=== PATIENT | female | born 1990 | race Caucasian/White ===

== ENCOUNTER 2018-06-26 12:38 | Emergency (ER) | payer SELFPAY ==
[~2018-06-26] VITALS: Ht 172.7 cm; Wt 115.2 kg
[2018-06-26 13:01] VITALS: BP 131/69
[2018-06-26] MEDS ORDERED: AMOX875T PO (13:14)
[2018-06-26] MEDS ORDERED: DEXAMETHASONE 4 MG TABLET PO ONE (13:15)
--- NOTE | 2018-06-26 13:15 | PHYS DOC ---
Past Medical History Past Medical History: Asthma, GERD Past Surgical History: Other Additional Past Surgical Histo: BILAT M&T,LEFT OVARY R/T ECTOPIC Alcohol Use: Occasionally Drug Use: None Adult General Chief Complaint Chief Complaint: DENTAL PROBLEM HPI HPI Patient is a 27 year old female who presents with left side face pain, eye lateral ear pain, bilateral ear drainage, headache, no fever, no nausea, vomiting, diarrhea 3 days. Patient states her allergies of been acting up but apparently for the past month she's been taking medication. Patient states she has a history of seasonal allergies, asthma, GERD. Patient states she recently just moved back to [place] and has no primary care provider. Patient rates her pain a 3 out of 10 that radiates to the left side of her face and left neck and head, states she's also been taking ibuprofen for any kind of pain. Review of Systems Review of Systems Constitutional: Denies fever or chills [] Eyes: Denies change in visual acuity, redness, or eye pain [] HENT: Nasal congestion. Denies sore throat. Bilateral ear drainage and pain. [] Respiratory: Denies cough or shortness of breath [] Cardiovascular: No additional information not addressed in HPI [] GI: Denies abdominal pain, nausea, vomiting, bloody stools or diarrhea [] : Denies dysuria or hematuria [] Musculoskeletal: Denies back pain or joint pain [] Integument: Denies rash or skin lesions [] Neurologic: Denies headache, focal weakness or sensory changes [] Endocrine: Denies polyuria or polydipsia [] All other systems were reviewed and found to be within normal limits, except as documented in this note. Current Medications Current Medications Current Medications Medications (Trade) Dose Ordered Sig/Pretty Start Time Stop Time Status Last Admin Dose Admin Dexamethasone (Decadron) 8 mg 1X ONCE 06/26/18 13:15 06/26/18 13:16 DC Allergies Allergies Allergies Coded Allergies Type Severity Reaction Last Updated Verified bacitracin Allergy Intermediate Rash 06/26/18 Yes neomycin Allergy Intermediate Rash 06/26/18 Yes paroxetine Allergy Intermediate Swelling 06/26/18 Yes polymyxin B Allergy Intermediate Rash 06/26/18 Yes Physical Exam Physical Exam Constitutional: Well developed, well nourished, no acute distress, non-toxic appearance. [] HENT: Normocephalic, atraumatic, bilateral external ears normal, Left ear tympanic is red. Right ear tympanic is white but with effusion. Oropharynx moist , no oral exudates, nose normal. [] Eyes: PERRLA, EOMI, conjunctiva normal, no discharge. [] Neck: Normal range of motion, no tenderness, supple, no stridor. [] Cardiovascular:Heart rate regular rhythm, no murmur [] Lungs & Thorax: Bilateral breath sounds clear to auscultation [] Abdomen: Bowel sounds normal, soft, no tenderness, no masses, no pulsatile masses. [] Skin: Warm, dry, no erythema, no rash. [] Back: No tenderness, no CVA tenderness. [] Extremities: No tenderness, no cyanosis, no clubbing, ROM intact, no edema. [] Neurologic: Alert and oriented X 3, normal motor function, normal sensory function, no focal deficits noted. [] Psychologic: Affect normal, judgement normal, mood normal. [] Current Patient Data Vital Signs Vital Signs Date Time Temp Pulse Resp B/P (MAP) Pulse Ox O2 Delivery O2 Flow Rate FiO2 06/26/18 13:01 98.3 76 20 131/69 (89) 97 Room Air 98.3 EKG EKG [] Radiology/Procedures Radiology/Procedures [] Course & Med Decision Making Course & Med Decision Making Patient is a 27 year old female who presents with left side face pain, eye lateral ear pain, bilateral ear drainage, headache, no fever, no nausea, vomiting, diarrhea 3 days. Patient states her allergies of been acting up but apparently for the past month she's been taking medication. Patient states she has a history of seasonal allergies, asthma, GERD. Patient states she recently just moved back to [place] and has no primary care provider. Patient rates her pain a 3 out of 10 that radiates to the left side of her face and left neck and head, states she's also been taking ibuprofen for any kind of pain. Lungs are clear bilaterally. Heart rate is normal without murmur. Patient denies cough or sinus tenderness. Throat is pink and without exudates. She denies any throat pain. Patient denies any nausea, vomiting, diarrhea. Patient is afebrile. There are no lymph nodes palpable. Area around the patient's left ear and when I examined the left ear was very tender for the patient. She is neurologically intact. Patient is given dexamethasone dose in the ED today. Patient will be given a prescription for amoxicillin. Patient is to follow-up with a primary care provider within 2-3 days. Patient continue taking her sinus medication and ibuprofen for pain. Patient is stable and in no distress. [] Dragon Disclaimer Dragon Disclaimer This electronic medical record was generated, in whole or in part, using a voice recognition dictation system. Departure Departure Impression: Primary Impression: Otitis media Disposition: HOME, SELF-CARE Condition: STABLE Referrals: NO PCP (PCP) Patient Instructions: Otitis Media, Adult Additional Instructions: Follow up with a PCP. Continue Sinus medication, Ibuprofen, and Take antibiotic as prescribed. Scripts Amoxicillin (AMOXICILLIN) 875 Mg Tablet 1 TAB PO BID, #14 TAB Prov: DEBBY PEREZ APRN 06/26/18 Problem Qualifiers Primary Impression: Otitis media Otitis media type: unspecified Chronicity: acute Qualified Codes: H66.90 - Otitis media, unspecified, unspecified ear DEBBY PEREZ APRN Jun 26, 2018 13:15
== END 2018-06-26 13:48 | disposition home or self-care (01) ==
LOC: ER 12:38
DX: H66.93 Otitis media, unspecified, bilateral (principal); R51 Headache; J45.909 Unspecified asthma, uncomplicated; K21.9 Gastro-esophageal reflux disease without esophagitis; Z88.1 Allergy status to other antibiotic agents; Z88.8 Allergy status to other drugs, medicaments and biological substances
CPT/HCPCS: 99283; J8540

== ENCOUNTER → 2019-02-07 | Outpatient (CLI) | payer BC ==
[~2019-02-07] MED LIST: AMOX875T PO
--- NOTE | 2019-02-07 13:22 | RAD ---
DATE: 02/07/2019 EXAM: MAMMAndrew IRIZARRY, BREAST LEFT HISTORY: Palpable abnormalities involving the left breast at the upper outer aspect in the lower inner aspect. COMPARISON: 10/24/2018 outside mammographic exam This study was interpreted with the benefit of Computerized Aided Detection (CAD). Breast Density: SCATTERED The breast parenchyma shows scattered fibroglandular densities. Breast parenchyma level B. FINDINGS: 2 markers were placed at the left upper outer breast. A marker was placed at the left lower inner breast. No mass, suspicious calcification, or distortion. Ultrasound imaging of the left breast was performed at the sites of reported palpable abnormality. Imaging was performed in particular to 10:00 region 7 cm from the nipple, 11:30 region 8 cm from the nipple and 2:00 region 7 cm from the nipple. No masses, cysts, or other suspicious findings are evident at the size reported by the patient. Upon physical exam by myself, there is no suspicious finding. IMPRESSION: No suspicious imaging finding. No suspicious finding on physical exam by myself. The sites of reported palpable abnormality are normal on imaging and no palpable finding is detected by myself. Clinical management is recommended in determining need for biopsy. BI-RADS CATEGORY: 1 NEGATIVE RECOMMENDED FOLLOW-UP: CLIN FOLLOW UP IMAGING CLINICALLY INDICATED PQRS compliance statement: Patient information was entered into a reminder system with a target due date at the age of 33 unless clinically indicated sooner for the next mammogram. Mammography is a sensitive method for finding small breast cancers, but it does not detect them all and is not a substitute for careful clinical examination. A negative mammogram does not negate a clinically suspicious finding and should not result in delay in biopsying a clinically suspicious abnormality. "Our facility is accredited by the [employer] Mammography Program."
== END | disposition home or self-care (01) ==
LOC: MAMMO 09:32
PROVIDERS: ATTEND Nurse Practitioner Family
DX: N60.12 Diffuse cystic mastopathy of left breast (principal)
CPT/HCPCS: 76641; 77066; G0279; 77062

== ENCOUNTER → 2021-03-27 | Outpatient (CLI) | payer OTHER ==
--- NOTE | 2021-04-01 13:54 | RAD ---
Gastric Emptying Study Indication: Reason: BLOATING HEARTBURN EARLY SATIETY Procedure: Anterior and posterior projection static images are obtained over the stomach following or al administration of 2 mCi of 99 M technetium sulfur colloid in a solid meal. Time points include an immediate baseline, and 1, 2, and 3 hours post ingestion. Findings: There is progressive emptying of the stomach on sequential images. Percentage retention at one hour is 82% (normal 34.8-91%). Two hours 1% (normal 2.7-60%). Three hours 0% (normal 0.5-28%). The calculated T1/2 of gastric emptying is 89 minutes. 45-90 minutes is considered normal. IMPRESSION: There is no delayed gastric emptying. Electronically signed by: Sergio Quach MD (04/01/2021 1:52 PM) [id number]
== END ==
LOC: NM 07:37
PROVIDERS: ATTEND Physician Assistant
DX: R14.0 Abdominal distension (gaseous) (principal); R12 Heartburn; R68.81 Early satiety
CPT/HCPCS: 78264; A9541

== ENCOUNTER → 2021-04-01 | Outpatient (CLI) | payer OTHER ==
--- NOTE | 2021-04-01 17:58 | KCIC ---
INDICATION: Reason: SHARP SHOOTING LBP INTO BOTH LEGS XS 2 WEEKS, NO INJURY / Spl. Instructions: / H istory: COMPARISON: None. IMPRESSION: Lumbar spine: 4 views obtained. No acute fracture or dislocation. Mild degenerative changes are ident ified with early osteophyte formation at the vertebral body endplates as well as facet hypertrophy. Electronically signed by: Bryson Curran MD (04/01/2021 5:56 PM) [id number]
== END ==
LOC: KCIC 15:25
PROVIDERS: ATTEND Nurse Practitioner Family
DX: M47.816 Spondylosis without myelopathy or radiculopathy, lumbar region (principal); M25.78 Osteophyte, vertebrae
CPT/HCPCS: 72110

== ENCOUNTER → 2021-05-15 | Outpatient (CLI) | payer OTHER ==
--- NOTE | 2021-05-16 10:55 | KCIC ---
Exam performed: Thyroid ultrasound. Indication: Hyperthyroidism. Date of Service: 05/15/2021. Comparison: None available. Technique: Real-time grayscale imaging of the thyroid gland is performed and images are obtained. Findings: The right lobe measures 4.4 x 1.8 x 2.0 cm cm. No solid or cystic mass lesions are seen. The thyroid isthmus measures 5.5 mm.. The left lobe measures 4.8 x 3.4 cm cm. There is a 1.2 x 1.0 x 0.86 cm hypoechoic nodule in the infer ior medial left lobe extending into the isthmus with vascularity. Separately there is an additional h ypoechoic 1.8 x 1.7 x 1.2 cm thyroid nodule containing calcifications. Impression: 1. Left thyroid nodules as outlined above. Given suspicious appearance, fine-needle aspiration of the dominant left thyroid nodule may be obtained. Electronically signed by: Zeny Lozada MD (05/16/2021 10:53 AM) [id number]
== END ==
LOC: KCIC US 14:35
PROVIDERS: ATTEND Nurse Practitioner Family
DX: E04.2 Nontoxic multinodular goiter (principal); E05.90 Thyrotoxicosis, unspecified without thyrotoxic crisis or storm
CPT/HCPCS: 76536

== ENCOUNTER → 2021-07-08 | Outpatient (CLI) | payer OTHER ==
--- NOTE | 2021-07-09 09:51 | RAD ---
EXAM: ULTRASOUND-GUIDED THYROID FINE-NEEDLE ASPIRATION OF 2 LEFT THYROID NODULES. HISTORY: Left thyroid nodules. Ultrasound-guided biopsy is requested. FINDINGS: The procedure along with its risks and benefits were explained to the patient. She agreed t o proceed. A timeout procedure was performed. Sonographic images of the thyroid gland were obtained. These redemonstrate solid nodules inferiorly i n the left thyroid lobe, and adjacent to the isthmus. Initially, the larger, more inferior nodule was targeted for biopsy. The overlying skin was sterilely prepped and infiltrated with 1% lidocaine for local anesthesia. Under ultrasound guidance, 4 aspirat es were obtained using 25-gauge needles. These were hand delivered to pathology who determined them a dequate for diagnosis. Second, the smaller nodule adjacent to the isthmus was targeted through the same skin site. 4 25-gaug e aspirates were obtained under ultrasound guidance. An additional 22-gauge aspirate was then obtaine d. Instrumentation was withdrawn, and a sterile dressing was placed. There were no immediate complica tions. IMPRESSION: 1. Successful ultrasound-guided fine-needle aspiration of 2 left thyroid nodules. Electronically signed by: Chris Warner MD (07/09/2021 9:49 AM) [id number]
== END | disposition home or self-care (01) ==
LOC: US 10:12
PROVIDERS: ATTEND Surgery
DX: E04.2 Nontoxic multinodular goiter (principal); Z72.89 Other problems related to lifestyle; Z79.899 Other long term (current) drug therapy; Z88.8 Allergy status to other drugs, medicaments and biological substances
CPT/HCPCS: 10005; 10006; C1819; 88173; 88305

== ENCOUNTER → 2021-08-06 | Outpatient (CLI) | payer OTHER ==
[~2021-08-06] MED LIST changes: +FAMO20TA5 PO; +GABA-585 PO; +HYDR12.59 PO; +LEVO-101 PO; +MELO7.5T29 PO; +OMEP40CA7 PO; +OXYC-325 PO
== END ==
LOC: LAB 12:55
PROVIDERS: ATTEND Surgery
DX: Z01.812 Encounter for preprocedural laboratory examination (principal); C73 Malignant neoplasm of thyroid gland; Z20.822 Contact with and (suspected) exposure to COVID-19
CPT/HCPCS: U0003; U0005

== ENCOUNTER 2021-08-08 05:57 | Observation (INO) | payer OTHER ==
[2021-08-08] VITALS (8 sets, daily range): BP systolic 110–139; BP diastolic 63–79
[~2021-08-08] VITALS: Ht 172.7 cm; Wt 130.0 kg
[~2021-08-08 05:57] MED LIST changes: -FAMO20TA5 PO; -GABA-585 PO; -HYDR12.59 PO; -LEVO-101 PO; -MELO7.5T29 PO; -OMEP40CA7 PO; -OXYC-325 PO
[2021-08-08] MEDS ORDERED: ceFAZolin SODIUM 3 GM in IV DEXTROSE 5% 100ML 100 ML IV PRN (06:00)
[2021-08-08] MEDS ORDERED: fentaNYL PF VIAL 100 MCG/2 ML VIAL IVP PRN (06:00)
[2021-08-08] MEDS ORDERED: PROCHLORPERAZINE 10 MG/2 ML VIAL. IVP PRN (06:00)
[2021-08-08] MEDS ORDERED: IV RINGERS,LACTATED 1000ML 1,000 ML IV SCH (06:00)
[2021-08-08] MEDS ORDERED: ACETAMINOPHEN 500 MG TABLET PO PRN (06:00)
[2021-08-08] MEDS ORDERED: HYDR12.59 PO (06:33)
[2021-08-08] MEDS ORDERED: GABA-585 PO (06:33)
[2021-08-08] MEDS ORDERED: OMEP40CA7 PO (06:33)
[2021-08-08] MEDS ORDERED: FAMO20TA5 PO (06:33)
[2021-08-08] MEDS ORDERED: MELO7.5T29 PO (06:33)
[2021-08-08] MEDS ORDERED: LIDOCAINE 2% PF 5 ML VIAL. ONE (06:54)
[2021-08-08] MEDS ORDERED: PROPOFOL 10 MG/ML (20ML) VIAL. IV ONE (06:54)
[2021-08-08] MEDS ORDERED: PHENYLEPHRINE 10 MG/ML VIAL. ONE (06:54)
[2021-08-08] MEDS ORDERED: DEXAMETHASONE SOD PHOS 20 MG/5 ML VIAL. ONE (06:54)
[2021-08-08] MEDS ORDERED: ONDANSETRON PF 4 MG/2 ML VIAL. ONE (06:54)
[2021-08-08] MEDS ORDERED: SEVOFLURANE > 120 MINUTES. IH ONE (06:54)
[2021-08-08] MEDS ORDERED: ROCURONIUM 50 MG/5 ML VIAL. ONE (06:55)
[2021-08-08] MEDS ORDERED: MIDAZOLAM HCL/PF 2 MG/2 ML VIAL. ONE (06:55)
[2021-08-08] MEDS ORDERED: SUCCINYLCHOLINE 200 MG/10 ML VIAL. ONE (06:55)
[2021-08-08] MEDS ORDERED: fentaNYL PF VIAL 100 MCG/2 ML VIAL ONE ×2 (06:55→09:39)
[2021-08-08] MEDS ORDERED: diphenhydrAMINE 50 MG/ML VIAL ONE (06:56)
[2021-08-08] MEDS ORDERED: BUPIVACAINE-EPI 0.25% 30 ML VIAL KIT. ONE (07:08)
[2021-08-08] MEDS ORDERED: KETAMINE HCL IN NACL, ISO-OSM 50 MG/5 ML SYRINGE ONE (08:14)
[2021-08-08] MEDS ORDERED: HYDROmorphone 2 MG/ML VIAL ONE ×2 (08:15→10:01)
[2021-08-08] MEDS ORDERED: SUGAMMADEX SODIUM 200 MG/2 ML VIAL. IVP ONE (08:15)
--- NOTE | 2021-08-08 09:11 | PDOC4 ---
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 Procedure of total thyroidectomy was explained to the patient detail risk benefits were also discussed including bleeding infection injury to the recurrent laryngeal nerve causing hoarseness and voice. Alternatives this procedure also discussed with the patient who seemed to understand and gave a verbal written consent to have the procedure performed. Patient was taken to the operating room placed in the supine position general anesthesia was initiated once patient was sleeping intubated her neck was prepped and draped usual sterile fashion using ChloraPrep. An area 2 fingerbreadths above the sternal notch was incised with 15 blade scalpel is carried down through the subcutaneous tissue using electrocautery right hemostasis down to the platysmas muscle which was incised a flap was propagated superiorly with blunt and sharp dissection and inferiorly similarly with blunt and sharp dissection a Mahorner retractor was then placed. The strap muscles in the midline were incised with electrocautery. Tensions were first turned to the left thyroid where the superior thyroid vessels were encircled with a right angle and a 2-0 Vicryl tie was used to tie and then transected with the harmonic scalpel adhesions to the thyroid were taken down with blunt sharp dissection use electrocautery the inferior vessels were similarly tied as the superior and transected with the harmonic scalpel the left thyroid was rolled to the midline using the harmonic scalpel to take down adhesions and attachments. Attention was then turned to the right thyroid where in similar fashion adhesions and attachments were taken down with the harmonic scalpel the superior vessels were encircled with a right angle and tied with a 2-0 Vicryl tie. Thyroid was removed from the neck a stitch was placed at the superior pole the left thyroid and sent for pathology along with a lymph node. Wound was irrigated with saline and suctioned dry hemostasis deemed be appropriate and the strap muscles in the midline were closed with a running 3-0 Vicryl the Mahorner retractor was removed and the platysmas was reapproximated with a 3-0 Vicryl running suture. Skin was reapproximated for subcuticular Monocryl Mastisol Steri-Strips island dressing were applied. Patient was awakened extubated operating room taken to recovery in stable condition all sponge instrument needle counts listed as correct estimated blood loss 20 mL MARCOS RUBIO MD Aug 08, 2021 09:11
[2021-08-08] MEDS ORDERED: ONDANSETRON PF 4 MG/2 ML VIAL. IV PRN (09:15)
[2021-08-08] MEDS ORDERED: 0.9 % SODIUM CHLORIDE 10 ML DISP.SYRIN. IV PRN (09:15)
[2021-08-08] MEDS ORDERED: oxyCODONE/APAP 5/325 1 TAB TABLET PO PRN ×2 (09:15)
[2021-08-08] MEDS ORDERED: MORPHINE SULFATE 2 MG/ML INJ. ONE (09:39)
[2021-08-08] MEDS: MORPHINE SULFATE 2 MG/ML INJ. IVP PRN ×2 (09:41→09:51)
[2021-08-08] MEDS: fentaNYL PF VIAL 100 MCG/2 ML VIAL IVP PRN ×2 (09:42→09:51)
[2021-08-08] MEDS: HYDROmorphone 2 MG/ML VIAL IVP PRN ×4 (10:04→11:31)
[2021-08-08] MEDS ORDERED: PROCHLORPERAZINE 10 MG/2 ML VIAL. ONE (10:07)
[2021-08-08] MEDS: IV DEXTROSE 5%-LACT RINGERS 1,000 ML IV SCH ×2 (13:03→23:17)
[2021-08-08] MEDS: KETOROLAC 30 MG/ML VIAL. IV SCH ×3 (13:03→23:17)
[2021-08-08] MEDS: MORPHINE SULFATE 2 MG/ML INJ. IV PRN ×2 (15:54→21:38)
[2021-08-08] MEDS ORDERED: FLU VACC QUAD 21-22 (6MOS+) PF 0.5 ML SYRINGE. VAX IM ONE (21:00)
[2021-08-09 03:15] VITALS: BP 99/59
[2021-08-09] MEDS: KETOROLAC 30 MG/ML VIAL. IV SCH (05:32)
[2021-08-09] MEDS ORDERED: LEVOTHYROXINE 100 MCG TABLET PO SCH (06:00)
[2021-08-09 07:00] VITALS: BP 130/72
[2021-08-09] MEDS ORDERED: LEVO-101 PO (08:47)
[2021-08-09] MEDS ORDERED: OXYC-325 PO (08:47)
--- NOTE | 2021-08-09 08:49 | DISCH ---
DISCHARGE INSTRUCTIONS Condition on Discharge Condition on Discharge: Stable Activity After Discharge Activity Instructions for Disc: Avoid exertion Diet after Discharge Diet after Discharge: Regular Wound Incision Care Other wound/incision instructi: Tahira shower today Contacting the after DC Call your doctor for: If your condition worsens Follow-Up Follow up with: Dr. Rubio in 2 weeks MARCOS RUBIO MD Aug 09, 2021 08:49
--- NOTE | 2021-08-09 08:50 | PDOC3 ---
Discharge Summary Visit Information Date of Admission: Aug 08, 2021 Date of Discharge: Aug 09, 2021 Admitting Diagnosis: Papillary thyroid cancer Final Diagnosis Papillary thyroid cancer Brief Hospital Course Allergies Allergies Coded Allergies Type Severity Reaction Last Updated Verified bacitracin Allergy Intermediate Rash 06/26/18 Yes neomycin Allergy Intermediate Rash 06/26/18 Yes paroxetine Allergy Intermediate Swelling 06/26/18 Yes polymyxin B Allergy Intermediate Rash 06/26/18 Yes Vital Signs Vital Signs Date Time Temp Pulse Resp B/P (MAP) Pulse Ox O2 Delivery O2 Flow Rate FiO2 08/09/21 07:41 Nasal Cannula 2.0 08/09/21 03:15 97.9 100 18 99/59 (72) 97 97.9 Lab Results Laboratory Tests Test 08/08/21 06:14 Bedside Urine HCG, Qualitative Hcg negative (Negative) Brief Hospital Course Ms. Gutierrez is a 30 old [female who presented with a papillary thyroid cancer on FNA underwent total thyroidectomy she was mated for postoperative observation overnight did quite well tolerating diet and being discharged home in stable condition Assessment Assessment Papillary thyroid cancer Discharge Information Condition at Discharge: Stable Follow Up: Weeks Disposition/Orders: D/C to Home Scheduled Famotidine (Famotidine) 20 Mg Tablet, 20 MG PO HS for , (Reported) Entered as Reported by: Brad Martinez on 08/08/21632 Last Action: New Order on 08/08/21632 by Brad Martinez Gabapentin (Gabapentin ) 100 Mg Capsule, 200 MG PO HS for NEUROGENIC PAIN, (Reported) Entered as Reported by: Brad Martinez on 08/08/21632 Last Action: New Order on 08/08/21632 by Brad Martinez Hydrochlorothiazide (Hydrochlorothiazide) 12.5 Mg Capsule, 12.5 MG PO DAILY for , (Reported) Entered as Reported by: Brad Martinez on 08/08/21632 Last Action: New Order on 08/08/21632 by Brad Martinez Meloxicam (Meloxicam) 7.5 Mg Tablet, 1 TAB PO DAILY for for 30 Days, #30 Ref 0 (Reported) Entered as Reported by: Brad Martinez on 08/08/21632 Last Action: New Order on 08/08/21632 by Brad Martinez Omeprazole (Omeprazole) 40 Mg Capsule.dr, 1 CAP PO DAILY for , #30 Ref 3 (Reported) Entered as Reported by: Brad Martinez on 08/08/21632 Last Action: New Order on 08/08/21632 by Brad Martinez Scheduled PRN Oxycodone HCl/Acetaminophen (Percocet 5-325 mg Tablet) 1 Each Tablet, 1 TAB PO Q6HRS PRN for PAIN MDD 4 Tablet(s) for 5 Days, #20 Ref 0 Prescribed by: Jourdan Dunham on 08/09/21 0848 Patient Instructions Patient Instructions No strenuous activity follow-up with Dr. Dunham in 2 weeks Justicifation of Admission Dx: Justifications for Admission: Justification of Admission Dx: N/A JOURDAN DUNHAM MD Aug 09, 2021 08:50
--- NOTE | 2021-08-09 10:25 | NUR ---
Discharge Note: LIT [facility] Discharge instructions and discharge home medications reviewed with Patient and spouse and a copy given. All questions have been answered and understanding verbalized. The following instructions and handouts were given:information about incision care, medications, diet, follow up, activity. Discontinued lines and drains: IV line in left hand removed, catheter tip intact. Patient discharged to home with self care with , patient ambulated to discharge vehicle.
--- NOTE | 2021-08-14 16:15 | PATHOLOGY ---
[facility] Accession Number: [id number] . 01 Material submitted: . PART A: parathyroid gland - PARATHYROID PART B: thyroid gland - THYROID LEFT SUPERIOR- STITCH . 01 Clinical history: . CANCER OF THYROID TOTAL THYROIDECTOMY . 02 Diagnosis: A. Lymph node, perithyroidal: - Metastatic carcinoma. . B. Thyroid gland and focal attached perithyroidal fibroadipose and skeletal mucosal tissue, total thyroidectomy: - Papillary carcinoma, classic type, two foci, the largest involving the middle left thyroid lobe measuring 1.8 cm in greatest dimension, and the smaller involving the left inferior thyroid lobe and adjacent isthmus measuring 1.6 cm in greatest dimension. - Tumor appears confined to the thyroid and focally abuts the anterolateral left thyroid lobe margin. - Minute focus of metastatic carcinoma involving perithyroidal lymph node of isthmic region. - No parathyroid glands identified. (JPM:mikhail; 08/13/2021) . . Surgical Pathology Cancer Case Summary Protocol posting date: April 2019 . THYROID GLAND: . Procedure ___ Total thyroidectomy . Tumor Focality ___ Multifocal . Tumor Site ___ Left lobe ___ Isthmus . Tumor Size Greatest dimension: 1.8 cm . Histologic Type ___ Papillary carcinoma, classic (usual, conventional) . Margins ___ Uninvolved by carcinoma + Distance of invasive carcinoma from closest margin: Less than 1 mm . Angioinvasion (Vascular Invasion) ___ Not identified . Lymphatic Invasion ___ Not identified . + Perineural Invasion +___ Not identified . Extrathyroidal Extension ___ Not identified . Regional Lymph Nodes Number of Lymph Nodes Involved: 2 Chris Levels Involved ___ Level - perithyroidal (isthmic) ___ Other: perithyroidal, exact site not specified . Size of Largest Metastatic Deposit: ___ Specify: 1-2 mm . Extranodal Extension ___ Not identified . Number of Lymph Nodes Examined: 2 . Pathologic Stage Classification (pTNM, AJCC 8th Edition) Primary Tumor (pT) ___ pT1b: Tumor >1 cm but less than or equal to 2 cm in greatest dimension, limited to the thyroid . Regional Lymph Nodes (pN) ___ pN1: Metastasis to regional nodes . + Additional Pathologic Findings + ___ None identified . + Clinical History + ___ No known radiation exposure . (JPM:shrub planter; 08/13/2021) QMS 08/13/2021 1438 Local . 02 Comment: Sections of the total thyroidectomy reveal two foci of papillary carcinoma involving the left thyroid lobe. The larger involves the middle left thyroid lobe and measures 1.8 cm in greatest dimension. The smaller involves the inferior left thyroid lobe and adjacent isthmus and measures 1.6 cm in greatest dimension. The tumor appears confined to the thyroid and focally abuts the cauterized anterolateral margin of the left thyroid lobe. The posterior margins are negative for tumor. A properly controlled immunoperoxidase stain for AE1/AE3 is obtained on a small perithyroidal lymph node of the isthmic region and reveals a minute subcapsular focus of metastatic carcinoma measuring less than 1 mm in greatest dimension. . A properly controlled immunoperoxidase stain for AE1/AE3 is obtained on the separately submitted perithyroidal lymph node (specimen A) and reveals a small subcapsular focus of metastatic carcinoma measuring 1-2 mm in greatest dimension. . The case is also examined by Dr. Diaz, who agrees with the diagnosis. . (JPM:mikhail; 08/13/2021) . 02 Electronically signed: . Chase Romero MD, Pathologist NPI- [id number] . 01 Gross description: . A. Received in formalin labeled "Grisel Gutierrez, perithyroid" is a irvin-brown soft tissue nodule measuring 0.8 x 0.6 x 0.3 cm and weighing 0.05 g. The specimen is submitted without sectioning in cassette A1. . B. Received in formalin labeled "Grisel Gutierrez, thyroid-left superior (stitch)" is a total thyroidectomy specimen weighing 23 g. The right lobe measures 4.1 x 3.1 x 2.3 cm, the left lobe measures 4.6 x 3.1 x 2.8 cm, and the isthmus measures 1.8 x 1.6 x 1.2 cm. The left superior lobe displays a suture. The external surface is red-brown and smooth and is inked as follows: Right anterior-green, left anterior-blue, isthmus anterior-orange, entire posterior-black. The specimen is sectioned to reveal 2 irvin-white solid masses with ill-defined borders. The first mass is located in the left mid lobe and measures 1.8 x 1.7 x 1.6 cm. The mass grossly abuts the inked anterior and anterior lateral surface. The second mass is located in the left inferior lobe and extends into the isthmus and measures 1.6 x 1.6 x 1.3 cm. The second mass grossly abuts the inked anterior surface. The masses are located 0.4 cm apart. The remaining thyroid parenchyma is red-brown and homogeneous without additional lesions identified. 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 02 Pathologist provided ICD-10: C77.9, C73 . 02 CPT . 850945, 129078, [id number] Specimen Comment: A courtesy copy of this report has been sent to [phone], [phone] Specimen Comment: [id number] Specimen Comment: Report sent to / DR NELSON Performed at: 01 [facility] [address], [place] [id number] MD Lex Mak MD Phone: [phone] Performed at: 02 [facility] [address], [place] [id number] MD Chase Romero MD Phone: [phone]
== END 2021-08-09 10:25 | disposition home or self-care (01) ==
LOC: SURG 05:57 → 4 NORTH 11:58
PROVIDERS: ADMIT Surgery; ATTEND Surgery
DX: C73 Malignant neoplasm of thyroid gland (principal); Z20.822 Contact with and (suspected) exposure to COVID-19; Z23 Encounter for immunization; Z71.85 Encounter for immunization safety counseling
CPT/HCPCS: 60240; 81025; 90471; 90686; 96374; 96375; 96376; A4930; G0378; G0379; J0330; J0780; J1100; J1170; J1200; J1885; J2250; J2270; J2370; J2405; J2704; J3010; J3490; J7121; 88305; 88307; 88342; A4223

== ENCOUNTER 2021-08-11 16:53 | Emergency (ER) | payer OTHER ==
[~2021-08-11] VITALS: Ht 172.7 cm; Wt 129.2 kg
[~2021-08-11 16:53] MED LIST changes: +FAMO20TA5 PO; +GABA-585 PO; +HYDR12.59 PO; +LEVO-101 PO; +MELO7.5T29 PO; +OMEP40CA7 PO; +OXYC-325 PO
--- NOTE | 2021-08-11 20:00 | PHYS DOC ---
Past Medical History Past Medical History: Asthma, GERD Past Surgical History: Other Additional Past Surgical Histo: BILAT M&T,LEFT OVARY R/T ECTOPIC , thyroidectomy Smoking Status: Former Smoker Alcohol Use: None Drug Use: None General Adult EDM: Chief Complaint: DIZZY/LIGHT HEADED HPI: HPI: Patient is a 30-year-old female who presents to the emergency department today for lightheadedness, generalized weakness and elevated blood pressure readings at home. Patient reports that she had a thyroidectomy on Wednesday at Dr. Dunham'zaria. She reports that she checked her blood pressure today and it was 160/104. She reports that she checked it again and the diastolic was 105. [address] Lopez told her if that number became 105 or greater that she needed to be evaluated in the emergency department. Patient is taking0.100mg of Synthroid at home but yesterday was told by Dr. Dunham to take half of a tablet. She denies chest pain, shortness of breath, fevers, nausea, vomiting, unilateral weakness, cough. Review of Systems: Review of Systems: Constitutional: See HPI Respiratory: See HPI Cardiovascular: See HPI GI: See HPI Musculoskeletal: See HPI Neurologic: See HPI Heart Score: C/O Chest Pain: No Risk Factors: Risk Factors: DM, Current or recent (<one month) smoker, HTN, HLP, family history of CAD, obesity. Risk Scores: Score 0 - 3: 2.5% MACE over next 6 weeks - Discharge Home Score 4 - 6: 20.3% MACE over next 6 weeks - Admit for Clinical Observation Score 7 - 10: 72.7% MACE over next 6 weeks - Early Invasive Strategies Allergies: Allergies: Allergies Coded Allergies Type Severity Reaction Last Updated Verified bacitracin Allergy Intermediate Rash 06/26/18 Yes neomycin Allergy Intermediate Rash 06/26/18 Yes paroxetine Allergy Intermediate Swelling 06/26/18 Yes polymyxin B Allergy Intermediate Rash 06/26/18 Yes Physical Exam: PE: Constitutional: Well developed, well nourished, no acute distress, non-toxic appearance. [] HENT: Normocephalic, atraumatic, bilateral external ears normal, oropharynx moist, no oral exudates, nose normal. [] Eyes: PERRL, EOMI, conjunctiva normal, no discharge. [] Neck: Normal range of motion, no tenderness, supple, no stridor. [] Cardiovascular:Heart rate regular rhythm, no murmur [] Lungs & Thorax: Bilateral breath sounds clear to auscultation [] Abdomen: Bowel sounds normal, soft, no tenderness, no masses, no pulsatile masses. [] Skin: Warm, dry, no erythema, no rash, dressing noted to anterior neck from thyroidectomy-dressing is intact with no surrounding signs of infection. [] Back: normal ROM Extremities: No tenderness, no cyanosis, no clubbing, ROM intact, no edema. [] Neurologic: Alert and oriented X 3, normal motor function, normal sensory function, no focal deficits noted. [] Psychologic: Affect normal, judgement normal, mood normal. [] Current Patient Data: Labs: Laboratory Tests Test 08/11/21 19:43 POC Urine HCG, Qualitative Hcg negative (Negative) Vital Signs: Vital Signs Date Time Temp Pulse Resp B/P (MAP) Pulse Ox O2 Delivery O2 Flow Rate FiO2 08/11/21 17:04 98.2 93 18 142/91 (108) 98 Room Air 98.2 EKG: EKG: EKG performed by ER staff at 08/27/2015 shows sinus rhythm with rate of 62, QTc of 535, no STEMI read by Dr. Christine at 2030. [] Radiology/Procedures: Radiology/Procedures: [] Course & Med Decision Making: Course & Med Decision Making Pertinent Labs and Imaging studies reviewed. (See chart for details) Patient presents to the emergency department for lightheadedness, generalized weakness and elevated blood pressure readings that started on Wednesday.Patient reports that these symptoms are intermittent and only when she checks her bp and it is elevated. Patient had a thyroidectomy on Wednesday by Dr. Dunham. Patient is not tachycardic in the emergency department and her blood pressure is mildly elevated at 138/90. Patient does not have any complaints of chest pain, shortness of breath. Work-up in the ER consisted of blood work, EKG. pressure continues to be within normal limits. Her potassium was 3.2 and this was replaced in the ER. Mild elevation of liver enzymes, patient Covid testing. Patient has no symptoms of endorgan damage. Patient will be discharged home to follow-up with her primary care provider and Dr. Dunham. She was advised to monitor her blood pressures twice a day and keep a log. I discussed with patie nt all findings and diagnostic testing as well as the need to follow-up with PCP for further evaluation and treatment or return to the ER if any new or worsening symptoms. Strict return precautions were also discussed at length. Patient voiced understanding and agreement with the plan. Patient is hemodynamically stable at the time of disposition. Dragon Disclaimer: Dragon Disclaimer: This electronic medical record was generated, in whole or in part, using a voice recognition dictation system. Departure Departure Impression: Primary Impression: Hypertension Qualified Codes: I10 - Essential (primary) hypertension Disposition: HOME / SELF CARE / HOMELESS Condition: GOOD Referrals: BATSHEVA NELSON APRN (PCP) Patient Instructions: Hypertension Additional Instructions: You were seen in the emergency department today for hypertension. Your blood pressure was within normal limits while you were in the emergency department. You had no indication of endorgan damage that we look for with hypertension. As we discussed, is unsure what is causing your elevated blood pressure readings at home. I would advise you to contact Dr. Dunham tomorrow to set up a follow- up appointment. You need to follow-up with your primary care provider tomorrow regarding management of your Synthroid. Please continue to monitor your blood pressure at home, keep a log and check it in the morning and in the evening. Return to the emergency department if you have elevated blood pressure readings, chest pain, shortness of breath, dizziness, weakness, intractable nausea or vomiting or any new or worsening concerns. EMERGENCY DEPARTMENT GENERAL DISCHARGE INSTRUCTIONS Thank you for coming to [facility] Emergency Department (ED) today and trusting us with you care. We trust that you had a positive experience in our Emergency Department. If you wish to speak to the department management, you may call the Director at [phone]. YOUR FOLLOW UP INSTRUCTIONS ARE FOLLOWS: 1. Do you have a private Doctor? If you do not have a private doctor, please ask for a resource list of physicians or clinics that may be able to assist you with follow up care. 2. The Emergency Physicain has interpreted your x-rays. The X-Ray specialist will also review them. If there is a change in the findings, you will be notified in 48 hours when at all possible. 3. A lab test or culture has been done, your results will be reviewed and you will be notified if you need a change in treatment. ADDITIONAL INSTRUCTIONS AND INFORMATION: 1. Your care today has been supervised by a physician who is specially trained in emergency care. Many problems require more than one evaluation for a complete diagnosis and treatment. We recommend that you schedule your follow up appointment as recommended to ensure complete treatment of you illness or injury. If you are unable to obtain follow up care and continue to have a problem, or if your condition worsens, we recommend that you return to the ED. 2. We are not able to safely determine your condition over the phone nor are we able to give sound medical advice over the phone. For these safety reasons, if you call for medical advice we will ask you to come to the ED for further evaluation. 3. If you have any questions regarding these discharge instructions please call the ED at [phone]. SAFETY INFORMATION: In the interest of safety, wellness, and injury prevention; we encourage you to wear your sealbelt, if you smoke; quite smoking, and we encourage family to use a protective helmet for bicycling and other sporting events that present an increased risk for head injury. IF YOUR SYMPTOMS WORSEN OR NEW SYMPTOMS DEVELOP, OR YOU HAVE CONCERNS ABOUT YOUR CONDITION; OR IF YOUR CONDITION WORSENS WHILE YOU ARE WAITING FOR YOUR FOLLOW UP APPOINTMENT; EITHER CONTACT YOUR PRIMARY CARE DOCTOR, THE PHYSICIAN WHOSE NAME AND NUMBER YOU WERE GIVEN, OR RETURN TO THE ED IMMEDIATELY. BOOGIE RBYANT APRN Aug 11, 2021 20:00
[2021-08-11 20:10] LABS: BASO # 0.1 x10^3/uL (0.0-0.2); BASO % 1 % (0-3); EOS # 0.4 x10^3/uL (0.0-0.7); EOS % 4 % (0-3); HEMATOCRIT 36.7 % (36.0-47.0); HEMOGLOBIN 12.7 g/dL (12.0-15.5); LYMPH # 2.8 x10^3/uL (1.0-4.8); LYMPH % 29 % (24-48); MEAN CORPUSCULAR HEMOGLOBIN 29 pg (25-35); MEAN CORPUSCULAR HGB CONC 35 g/dL (31-37); MEAN CORPUSCULAR VOLUME 85 fL (79-100); MONO # 0.9 x10^3/uL (0.0-1.1); MONO % 10 % (0-9); NEUT # 5.3 x10^3/uL (1.8-7.7); NEUT % 56 % (31-73); PLATELET COUNT 349 x10^3/uL (140-400); RED BLOOD COUNT 4.33 x10^6/uL (3.50-5.40); RED CELL DISTRIBUTION WIDTH 13.6 % (11.5-14.5); WHITE BLOOD COUNT 9.5 x10^3/uL (4.0-11.0)
[2021-08-11 20:11] LABS: BILIRUBIN,URINE NEGATIVE (NEG); CLARITY,URINE CLEAR; COLOR,URINE YELLOW; NITRITE,URINE NEGATIVE (NEG); PROTEIN,URINE NEGATIVE (NEG-TRACE)
[2021-08-11 20:15] LABS: BACTERIA,URINE 0 /HPF (0-FEW); RBC,URINE OCC /HPF (0-2)
[2021-08-11 20:37] LABS: CALCIUM 8.5 mg/dL (8.5-10.1); GFR 64.3; POTASSIUM 3.2 mmol/L (3.5-5.1)
[2021-08-11 20:42] LABS: ALBUMIN 3.3 g/dL (3.4-5.0); ALBUMIN/GLOBULIN RATIO 0.9 (1.0-1.7); TOTAL BILIRUBIN 0.3 mg/dL (0.2-1.0); TOTAL PROTEIN 6.9 g/dL (6.4-8.2)
[2021-08-11 20:49] LABS: FREE T4 1.25 ng/dL (0.76-1.46); THYROID STIM HORMONE (TSH) 0.04 uIU/mL (0.358-3.74)
[2021-08-11] MEDS ORDERED: POTASSIUM CHLORIDE 20 MEQ TABLET.ER. PO ONE (21:15)
[2021-08-11] MEDS ORDERED: IV NORMAL SALINE 1000ML BAG 1,000 ML IV ONE (21:15)
[2021-08-11 22:34] VITALS: BP 111/73
--- NOTE | 2021-08-11 22:56 | EKG ---
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
== END 2021-08-11 22:48 | disposition home or self-care (01) ==
LOC: ER 16:53
DX: I10 Essential (primary) hypertension (principal); Z20.822 Contact with and (suspected) exposure to COVID-19; R42 Dizziness and giddiness; R53.1 Weakness; J45.909 Unspecified asthma, uncomplicated; K21.9 Gastro-esophageal reflux disease without esophagitis; Z87.891 Personal history of nicotine dependence; Z88.1 Allergy status to other antibiotic agents; Z88.8 Allergy status to other drugs, medicaments and biological substances
CPT/HCPCS: 36415; 80053; 81001; 81025; 84439; 84443; 84484; 85025; 87086; 87426; 93005; 99285; U0003; U0005

== ENCOUNTER → 2021-08-27 | Outpatient (CLI) | payer OTHER ==
[2021-08-11 22:34] VITALS: BP 111/73
[~2021-08-27] MED LIST changes: +IOHEXOL 240 MG/ML 50ML VIAL. PO ONE; +IOHEXOL 300 MG/ML 100ML VIAL. IV ONE
--- NOTE | 2021-08-27 17:48 | KCIC ---
INDICATION: Reason: Known adrenal mass, new dx. thyroid cancer. / Spl. Instructions: 100mL Omni 300 / History: Known mass, no recent imaging since 2012. COMPARISON: None. TECHNIQUE: Axial CT images were obtained through the abdomen and pelvis with intravenous contrast. One or more of the following individualized dose reduction techniques were utilized for this examinat ion: 1. Automated exposure control; 2. Adjustment of the mA and/or kV according to patient size; 3 . Use of iterative reconstruction technique. FINDINGS: Vascular: No abdominal aortic aneurysm. Hepatobiliary: Diffusely low attenuation of liver. This can be seen with fatty infiltration. Could li tami evaluation for a low-density lesion. Pancreas: No peripancreatic edema. Spleen: Spleen unremarkable. Renal/Bladder: No hydronephrosis. Urinary bladder is partially distended. Left adrenal mass is identi fied measuring 30 x 35 mm. On the postcontrast images the lesion measures approximately 25-30 Hounsfi eld units and on the delayed images it measures approximately 7-10 Hounsfield units. This correlates with a relative washout value of greater than 60 percent which is suggestive of adrenal adenoma. Gastrointestinal: Mild colonic diverticulosis. No periappendiceal inflammatory changes. Small fat-con taining umbilical hernia. No dilated loops of bowel to suggest obstruction. IMPRESSION: * No evidence of metastatic disease to the abdomen. * Left adrenal nodule is identified with the relative washout values correlating with the diagnosis of adrenal adenoma. * Liver is low density which can be seen with fatty infiltration Electronically signed by: Bryson Curran MD (08/27/2021 5:45 PM) [id number]
== END ==
LOC: KCIC CT 14:39
PROVIDERS: ATTEND Nurse Practitioner Family
DX: E27.9 Disorder of adrenal gland, unspecified (principal); K42.9 Umbilical hernia without obstruction or gangrene; K57.30 Diverticulosis of large intestine without perforation or abscess without bleeding
CPT/HCPCS: 74177; Q9966; Q9967

== ENCOUNTER → 2022-01-26 | Outpatient (CLI) | payer OTHER ==
[~2022-01-26] MED LIST changes: -IOHEXOL 240 MG/ML 50ML VIAL. PO ONE; -IOHEXOL 300 MG/ML 100ML VIAL. IV ONE
--- NOTE | 2022-01-26 10:33 | KCIC ---
CLINICAL INDICATION: Reason: RADICULOPATHY LUMBAR REGION / Spl. Instructions: / History: LBP progres sing for two yrs. Worsening BLE pain also. NKI. COMPARISON: 08/27/2021 TECHNIQUE: Multiplanar, multisequence MR imaging of the lumbar spine was performed without IV contras t. FINDINGS: Vertebral body heights are preserved. Mild decreased T1 marrow signal remains hyperintense to the dis cs, possibly residual red marrow or red marrow reconversion. Disc heights are preserved, grossly norm al in signal. No spondylolisthesis. Conus terminates at L2, normal in morphology and signal. At T12-L1: No thecal sac deformity or neural foraminal narrowing. At L1-L2: No thecal sac deformity or neural foraminal narrowing. At L2-L3: No thecal sac deformity or neural foraminal narrowing. At L3-L4: No thecal sac deformity or neural foraminal narrowing. At L4-L5: Shallow generalized disc bulge results in trace flattening of the ventral thecal sac. Supe rimposed right foraminal disc protrusion causes mild to moderate inferior right neural foraminal narr owing with disc material in close proximity to the exiting L4 nerve root. At L5-S1: Shallow generalized disc bulge is also trace flattening of the ventral thecal sac, eccent mulugeta to the right with superimposed right foraminal disc protrusion resulting in mild right neural for aminal narrowing. IMPRESSION: 1. Degenerative changes most prominent at L4-5 and L5-S1 with associated right foraminal disc protru sions resulting in mild neural foraminal narrowing. This is slightly more prominent at L4-5. 2. Mildly decreased T1 marrow signal, possibly related to residual red marrow or from red marrow rec onversion which could be seen with smoking, anemia or obesity. Electronically signed by: Librado Renteria MD (01/26/2022 10:31 AM) [id number]
== END ==
LOC: KCIC MRI 09:08
PROVIDERS: ATTEND Nurse Practitioner Family
DX: G89.29 Other chronic pain (principal); M47.817 Spondylosis without myelopathy or radiculopathy, lumbosacral region; M51.27 Other intervertebral disc displacement, lumbosacral region; M48.07 Spinal stenosis, lumbosacral region
CPT/HCPCS: 72148